=== PATIENT | male | born 1965 | race Caucasian/White ===

== ENCOUNTER 2024-05-26 11:04 | Emergency (ER) | payer OTHER ==
[~2024-05-26] VITALS: Ht 175.3 cm; Wt 76.7 kg
[2024-05-26] MEDS ORDERED: ELIQUIS2.5 MG PO (11:25)
[2024-05-26] MEDS ORDERED: PEPCID20 MG PO (11:26)
[2024-05-26] MEDS ORDERED: VENTOLIN HFA18 GM INH (12:02)
[2024-05-26] MEDS ORDERED: DOXYCYCLINE HY100 MG PO (12:02)
[2024-05-26] MEDS ORDERED: PREDNISONE20 MG PO (12:02)
[2024-05-26] MEDS ORDERED: ONDANSETRON ODT4 MG PO (12:03)
[2024-05-26 12:11] VITALS: BP 136/101
== END 2024-05-26 12:13 | disposition home or self-care (01) ==
LOC: ED 11:04
DX: J44.89 Other specified chronic obstructive pulmonary disease (principal); Z79.01 Long term (current) use of anticoagulants; Z79.899 Other long term (current) drug therapy
CPT/HCPCS: 99283